=== PATIENT | female | born 1950 | race Caucasian/White ===

== ENCOUNTER 2017-09-20 20:23 | Observation (INO) | payer OTHER ==
[~2017-09-20 20:23] MED LIST: LEVO75TA3 PO; statin
[2017-09-20 23:25] VITALS: BP 118/70; PULSE 74; RESP 18; TEMP 98; O2SAT 97
[2017-09-21] MEDS ORDERED: ONDANSETRON HCL 4 MG/2 ML VIAL IV PUSH PRN (00:45)
[2017-09-21 01:44] LABS: BILIRUBIN, URINE NEG (NEG); BLOOD, URINE NEG (NEG); GLUCOSE,URINE NEG (NEG); KETONE, URINE 10 mg/dL (NEG); NITRITE,URINE NEG (NEG); URINE COLOR LIGHT-YELLOW (YELLW/STRAW); URINE LEUKOCYTE ESTERASE LARGE (NEG)
[2017-09-21] MEDS: ACETAMINOPHEN 500 MG CPLT PO PRN ×3 (01:52→12:59)
[2017-09-21 05:43] LABS: AUTOMATED NEUTROPHIL # 9.9 TH/MM3 (1.8-7.7); BASOPHIL # 0.1 TH/MM3 (0-0.2); BASOPHIL % 0.6 % (0.0-2.0); EOSINOPHIL # 0.4 TH/MM3 (0-0.4); HEMATOCRIT 44.5 % (35.0-46.0); HEMOGLOBIN 15.2 GM/DL (11.6-15.3); LYMPH % 22.6 % (9.0-44.0); LYMPHOCYTE # 3.3 TH/MM3 (1.0-4.8); MEAN CELL VOLUME 88.9 FL (80.0-100.0); MEAN CORPUSCULAR HEMOGLOBIN 30.4 PG (27.0-34.0); MEAN CORPUSCULAR HGB CONC 34.2 % (32.0-36.0); MEAN PLATELET VOLUME 8.9 FL (7.0-11.0); MONO % 5.1 % (0.0-8.0); MONOCYTE # 0.7 TH/MM3 (0-0.9); NEUT % 68.7 % (16.0-70.0); PLATELET COUNT 273 TH/MM3 (150-450); RED BLOOD COUNT 5.01 MIL/MM3 (4.00-5.30); RED CELL DISTRIBUTION WIDTH 13.3 % (11.6-17.2); WHITE BLOOD COUNT 14.4 TH/MM3 (4.0-11.0)
[2017-09-21 07:00] VITALS: PULSE 103
[2017-09-21 08:00] VITALS: BP 122/69; PULSE 101; RESP 20; TEMP 97.3; O2SAT 95
[2017-09-21 08:17] VITALS: BP 122/69; PULSE 101; RESP 20; TEMP 97.3; O2SAT 95
[2017-09-21] MEDS ORDERED: LEVOTHYROXINE SODIUM 75 MCG TAB PO SCH (08:47)
[2017-09-21] MEDS ORDERED: SIMV40TA PO (09:50)
--- NOTE | 2017-09-21 10:19 | HHI.HP ---
HPI Primary Care Physician Non-Staff Chief Complaint Chest pain and back pain History of Present Illness This is a 67-year-old female with history of hypothyroidism and hyperlipidemia and left bundle branch block that presents to ED in the tone a with a stated complaint of "I had a little bit of chest pain." The symptoms began 2 days ago. They have been intermittent lasting a few minutes at a time. 5 out of 10 on the pain level. Nonexertional. Found nothing in particular brings symptoms on. Found nothing to worsen or improve the. Denies shortness of breath, nausea , or diaphoresis. Cannot recall prior cardiac workup other than having EKG done a few months ago and at that time she was told that she had a left bundle branch block. Patient also is clouding of a low back pain. She states that sometimes she has a urinary tract infection when she has low back pain. Denies dysuria, hematuria, or discharge. Denies fevers or chills. Denies nausea or vomiting. Review of Systems General: Patient denies fevers, chills recent, and recent travel HEENT: Patient denies headache, sore throat, difficulty swallowing. Cardiovascular: Has the chest discomfort as mentioned above. Denies sensation of heart beating rapidly or irregularly. No syncope. Denies diaphoresis. Respiratory: Denies shortness of breath or inspirational chest discomfort. Denies coughing wheezing or hemoptysis. GI: Patient denies nausea, vomiting, diarrhea, abdominal pain, bloody stools. Musculoskeletal: Planes of the low back pain. Patient denies joint pain or edema. Denies calf pain or edema. Neurovascular: Patient denies numbness, tingling, weakness in extremities. Denies headache. Endocrine: Denies polyuria and polydipsia. Hematologic: Denies easy bruising. Genitourinary: Denies hematuria, discharge, vaginal discharge. Complains of low back pain. Skin: Denies rash or itching. Past Family Social History Allergies: Coded Allergies: No Known Allergies (Unverified , 09/20/17) Past Medical History Hypothyroidism and hyperlipidemia. Recently told that she had a left bundle branch block a few months ago. Denies diabetes, CAD, and hypertension. Lifetime nonsmoker. Past Surgical History . Reported Medications Reported Meds & Active Scripts Active Reported Simvastatin 40 Mg Tab 40 Mg PO HS [statin] Levothyroxine (Levothyroxine Sodium) 75 Mcg Tab 75 Mcg PO DAILY Active Ordered Medications Current Medications Medications (Trade) Dose Ordered Sig/[place] Route Start Time Stop Time Status Last Admin (Tylenol) 500 mg Q4H PRN PO 09/21/17 00:45 09/21/17 06:33 (Zofran Inj) 4 mg Q6H PRN IV PUSH 09/21/17 00:45 (Synthroid) 75 mcg DAILY@0600 PO 09/21/17 08:47 09/21/17 09:15 Family History She states her mother age 69 and thinks it was cardiac related but does not know any more specific information. Social History Lifetime nonsmoker. Denies alcohol or illicit drugs. Physical Exam Vital Signs Vital Signs Date Time Temp Pulse Resp B/P (MAP) Pulse Ox O2 Delivery O2 Flow Rate FiO2 09/21/17 08:17 97.3 101 20 122/69 (86) 95 09/21/17 08:00 97.3 101 20 122/69 (86) 95 09/21/17 07:00 103 09/20/17 23:25 98.0 74 18 118/70 (86) 97 Physical Exam GENERAL: This is a well-nourished, well-developed patient, in no apparent distress. Patient speaks in clear complete sentences. Patient is pleasant. HEENT: Head is atraumatic and normocephalic. Neck is supple without lymphadenopathy and trachea is midline. No JVD or carotid bruits. CARDIOVASCULAR: Regular rate and rhythm without murmurs, gallops, or rubs. RESPIRATORY: Clear to auscultation. Breath sounds equal bilaterally. No wheezes , rales, or rhonchi. Chest wall is tender reproducing the discomfort that she has been having. No use of accessory muscles. GASTROINTESTINAL: Abdomen is nontender, nondistended. Abdomen soft. No obvious pulsatile mass or bruit. No CVA tenderness. Strong femoral pulses bilaterally. Normal bowel sounds in all quadrants. MUSCULOSKELETAL: Patient is moving upper and lower extremities freely. No calf tenderness or edema, no Homans sign. Strong pulses in upper and lower extremities. NEUROLOGICAL: Patient is alert and oriented. Cranial nerves 2-12 are grossly intact. No focal deficits and speech is clear. SKIN: No rash and turgor is normal. Laboratory Laboratory Tests Test 09/20/17 21:00 09/20/17 23:59 09/21/17 05:14 Troponin I LESS THAN 0.02 Urine Color LIGHT-YELLOW Urine Turbidity CLEAR Urine pH 5.0 Urine Specific [place] 1.006 Urine Protein NEG Urine Glucose (UA) NEG Urine Ketones 10 Urine Occult Blood NEG Urine Nitrite NEG Urine Bilirubin NEG Urine Urobilinogen LESS THAN 2.0 Urine Leukocyte Esterase LARGE White Blood Count 14.4 Red Blood Count 5.01 Hemoglobin 15.2 Hematocrit 44.5 Mean Corpuscular Volume 88.9 Mean Corpuscular Hemoglobin 30.4 Mean Corpuscular Hemoglobin Concent 34.2 Red Cell Distribution Width 13.3 Platelet Count 273 Mean Platelet Volume 8.9 Neutrophils (%) (Auto) 68.7 Lymphocytes (%) (Auto) 22.6 Monocytes (%) (Auto) 5.1 Eosinophils (%) (Auto) 3.0 Basophils (%) (Auto) 0.6 Neutrophils # (Auto) 9.9 Lymphocytes # (Auto) 3.3 Monocytes # (Auto) 0.7 Eosinophils # (Auto) 0.4 Basophils # (Auto) 0.1 CBC Comment DIFF FINAL Differential Comment Result Diagram: 09/21/17 0514 Imaging Chest x-ray read by radiologist and does not reveal anything acute. Course EKGs are left bundle branch block. Caprini VTE Risk Assessment Caprini VTE Risk Assessment: Mod/High Risk (score >= 2) Caprini Risk Assessment Model Point Value = 1 Point Value = 2 Point Value = 3 Point Value = 5 Age 41-60 Minor surgery BMI > 25 kg/m2 Swollen legs Varicose veins or History of unexplained or recurrent spontaneous Oral contraceptives or hormone replacement Sepsis (< 1 month) Serious lung disease, including pneumonia (< 1 month) Abnormal pulmonary function Acute myocardial infarction Congestive heart failure (< 1 month) History of inflammatory bowel disease Medical patient at bed rest Age 61-74 Arthroscopic surgery Major open surgery (> 45 min) Laparoscopic surgery (> 45 min) Malignancy Confined to bed (> 72 hours) Immobilizing plaster cast Central venous access Age >= 75 History of VTE Family history of VTE Factor V Leiden Prothrombin [id number] Lupus anticoagulant Anticardiolipin antibodies Elevated serum homocysteine Heparin-induced thrombocytopenia Other congenital or acquired thrombophilia Stroke (< 1 month) Elective arthroplasty Hip, pelvis, or leg fracture Acute spinal cord injury (< 1 month) Prophylaxis Regimen Total Risk Factor Score Risk Level Prophylaxis Regimen 0-1 Low Early ambulation 2 Moderate Order ONE of the following: *Sequential Compression Device (SCD) *Heparin 5000 units SQ BID 3-4 Higher Order ONE of the following medications: *Heparin 5000 units SQ TID *Enoxaparin/Lovenox 40 mg SQ daily (WT < 150 kg, CrCl > 30 mL/min) *Enoxaparin/Lovenox 30 mg SQ daily (WT < 150 kg, CrCl > 10-29 mL/min) *Enoxaparin/Lovenox 30 mg SQ BID (WT < 150 kg, CrCl > 30 mL/min) AND/OR *Sequential Compression Device (SCD) 5 or more Highest Order ONE of the following medications: *Heparin 5000 units SQ TID (Preferred with Epidurals) *Enoxaparin/Lovenox 40 mg SQ daily (WT < 150 kg, CrCl > 30 mL/min) *Enoxaparin/Lovenox 30 mg SQ daily (WT < 150 kg, CrCl > 10-29 mL/min) *Enoxaparin/Lovenox 30 mg SQ BID (WT < 150 kg, CrCl > 30 mL/min) AND *Sequential Compression Device (SCD) Assessment and Plan Assessment and Plan * Chest pain: Patient has had serial cardiac enzymes and EKGs for ruling out purposes. EKG has a left bundle branch block which patient states she was aware of as of a few months ago. Patient will be seen by Dr. De La Torre of cardiology and the chest pain center. She will undergo a Lexiscan be discharged at the stress test was nonischemic with instructions to follow-up with PCP. Return to ED for interval issues. * Left bundle branch block: Patient was aware of left bundle branch block. * Hyperlipidemia: Continue current medication. * Hypothyroidism: Continue current medication. * UTI: Patient was playing of low back pain. There were leukoesterase on the urinalysis. We'll give antibiotics at her follow-up with PCP. Increase fluid intake. Patient is stable at this time. She is agreeable to this plan. Blas Mo Sep 21, 2017 10:19
[2017-09-21] MEDS ORDERED: REGADENOSON INJ 0.4 MG/5 ML SYR ONE (11:02)
[2017-09-21] MEDS ORDERED: AMINOPHYLLINE INJ 500 MG/20 ML VIAL ONE (11:47)
[2017-09-21 12:00] VITALS: BP 124/72; PULSE 99; RESP 20; TEMP 97.4; O2SAT 95
[2017-09-21 12:38] VITALS: PULSE 106
--- NOTE | 2017-09-21 13:29 | RADRPT ---
EXAM DATE/TIME: 09/21/2017 10:56 [facility] COMPARISON: No previous studies available for comparison. INDICATIONS : Chest pain Angina. DOSE: 27.3 mCi Tc99m Myoview at stress. 8.5 mCi Tc99m Myoview at rest. 0.4 mg Lexiscan STRESS SYMPTOMS: Chest pain and headache. MEDICATIONS: 1.) 100 mg Aminophylline IV EJECTION FRACTION: 46% MEDICAL HISTORY : Hypothyroidism. SURGICAL HISTORY : section. ENCOUNTER: Initial ACUITY: 1 day PAIN SCALE: 0/10 LOCATION: Bilateral chest TECHNIQUE: The patient underwent pharmacologic stress with infusion of prescribed dose. Continuous ECG tracing was monitored during stress. Gated SPECT imaging was performed after stress and conventional SPECT i maging was performed at rest. The examination was performed on a SPECT/CT scanner, both attenuation and non-corrected datasets were reviewed. FINDINGS: Moderate gut activity does obscure the inferior wall. Perfusion is better at stress than at rest in all projections although significant portion of the inf erior wall is obscured. I don't see redistribution. Ejection fraction is 46% with mild global hypokinesis. CONCLUSION: Negative for stress-induced ischemia however large portion of the inferior myocardium obscured. Megha elation suggested RISK CATEGORY: Low (<1% Annual Mortality Rate) Domenico Rubi MD FACR on September 21, 2017 at 13:26 Board Certified Radiologist. This report was verified electronically.
--- NOTE | 2017-09-21 14:28 | TR ---
Date Performed: 09/21/2017 Time Performed: 11:21:31 DOCTOR: Khari De La Torre DRUG LIST: CLINICAL HISTORY: REASON FOR TEST: REASON FOR ENDING: OBSERVATION: CONCLUSION: Lexiscan stress test was performed under standard four minute protocol. Radionuclid e was injected one minute prior to ending the test. No electrocardiographic abormalities were present to suggest ischemia. Nuclear imaging and interpretation are pending. COMMENTS:
[2017-09-21] MEDS ORDERED: [UNRECOGNIZED DRUG - CODE] PO (14:30)
--- NOTE | 2017-09-21 14:30 | HHI.DCPOC ---
Discharge Care Plan Diagnosis: (1) Chest pain (2) UTI (urinary tract infection) (3) Hyperlipidemia (4) LBBB (left bundle branch block) Goals to Promote Your Health * To prevent worsening of your condition and complications * To maintain your health at the optimal level Directions to Meet Your Goals Take your medications as prescribed Follow your dietary instruction Follow activity as directed Keep your appointments as scheduled Take your immunizations and boosters as scheduled If your symptoms worsen call your PCP, if no PCP go to Urgent Care Center or Emergency Room Smoking is Dangerous to Your Health. Avoid second hand smoke Call the 24-hour hour crisis hotline for domestic abuse at Blas Mo Sep 21, 2017 14:29
--- NOTE | 2017-09-21 14:32 | EKG ---
Date Performed: 09/20/2017 Time Performed: 22:43:22 PTAGE: 67 years EKG: Sinus rhythm LEFT BUNDLE BRANCH BLOCK ABNORMAL ECG NO PREVIOUS TRACING DOCTOR: Khari De La Torre Interpretating Date/Time 09/21/2017 14:31:53
[2017-09-21 16:00] VITALS: BP 106/60; PULSE 109; RESP 20; TEMP 96.4; O2SAT 93
== END 2017-09-21 17:41 | disposition home or self-care (01) ==
LOC: NEDDLT 20:23 → NEPFCDU 20:25
DX: R07.9 Chest pain, unspecified (principal); I44.7 Left bundle-branch block, unspecified; E78.5 Hyperlipidemia, unspecified; E03.9 Hypothyroidism, unspecified; N39.0 Urinary tract infection, site not specified
CPT/HCPCS: 71010; 78452; 80048; 81003; 82550; 82552; 83735; 83880; 84484; 85025; 85379; 85610; 85730; 93005; 93017; 99285; A9502; J0280; J2405; J2785